=== PATIENT | female | born 1990 | race Caucasian/White ===

== ENCOUNTER → 2017-07-10 23:50 | Observation (INO) ==
--- NOTE | 2017-07-10 22:19 | OB/GYN Progress Note ---
Date of Encounter: 07/10/17 Time of Encounter: 22:16 - Assessment and Plan (1) 28 weeks gestation of Current Visit: Yes Status: Acute admit for observation (2) Vaginal discharge during in second trimester Current Visit: Yes Status: Acute vaginosis panel Subjective - Subjective Principal diagnosis: Vaginal discharge Interval history: Patient is 27 y/o at 28 weeks gestation presents to labor and delivery with complaints of vaginal discharge after intercourse. Patient states she was concerned due to PPROM at 26 weeks with last . Patient denies contractions and reports +FM. Patient denies any vaginal bleeding but reports white watery discharge. Patient denies any vaginal itching or burning. Patient is on vaginal progesterone and last dose was last night. Patient is on subutex and has history of LTCS. Antepartum ROS: loss of fluid, movement normal, no vaginal bleeding, no contractions Objective - Exam FHR: auscultation normal FHR comments: baseline 125 bpm Auscultation: bilateral: normal Abdomen: Present: normal appearance, soft, gravid Uterus: Present: normal, firm Cervical dilation: closed Cervix effacement: 60 station: -3 Comments: speculum exam: NO pooling, Nitrazine equivocal, Fern test negative. Moderate amount of water white discharge. vaginosis panel collected and sent to lab
[2017-07-10 22:40] LABS: Amphetamine Screen,Urine Negative ng/mL (Cutoff=1000); Barbiturate Screen,Urine Negative ng/mL (Cutoff=200); Benzodiazepines Screen,Urine Negative ng/mL (Cutoff=200); Cannabinoid Screen,Urine Negative ng/mL (Cutoff = 50); Cocaine Screen,Urine Negative ng/mL (Cutoff= 300); Opiate Screen,Urine Negative ng/mL (Cutoff=300); Phencyclidine Screen,Urine Negative ng/mL (Cutoff=25)
[2017-07-10 23:29] LABS: Bilirubin,Urine Negative (Negative); Blood,Urine Negative (Negative); Clarity,Urine Clear (Clear); Color,Urine Yellow (Yellow); Glucose,Urine (UA) Normal (Normal); Ketones,Urine Negative (Negative); Leukocyte Esterase,Urine Negative (Negative); Nitrite,Urine Negative (Negative); Protein,Urine Negative (Neg-Trace); Specific Gravity,Urine 1.017 (1.010-1.025); Urobilinogen,Urine Normal (Normal)
[2017-07-10 23:31] LABS: Candida DNA Not Detected (Not Detect); Gardnerella DNA ***DETECTED*** (Not Detect); Trichomonas DNA Not Detected (Not Detect)
--- NOTE | 2017-07-10 23:34 | Discharge Summary ---
Date of Encounter: 07/10/17 Time of Encounter: 23:33 - Discharge Diagnosis (1) 28 weeks gestation of Priority: Primary Status: Acute (2) Vaginal discharge during in second trimester Priority: Secondary Status: Acute Comments: vaginosis panel + for BV (3) BV (bacterial vaginosis) Priority: Secondary Status: Acute Comments: RX for flagyl 500mg po BID x 7 days (4) NST (non-stress test) reactive on surveillance Priority: Secondary Status: Acute Comments: baseline 125 bpm moderate variability +15x15 accels no decels noted. - Discharge Medications Prescriptions: Docusate Sodium [Colace] 100 mg PO BID #60 capsule metroNIDAZOLE [Flagyl] 500 mg PO BID #14 tablet Home Medications: Docusate Sodium [Colace] 100 mg PO BID #60 capsule 07/10/17 [Rx] Gabapentin Enacarbil 07/10/17 [History] One Tablet 07/10/17 [History] Progesterone 07/10/17 [History] Subutex 07/10/17 [History] metroNIDAZOLE [Flagyl] 500 mg PO BID #14 tablet 07/10/17 [Rx] Allergies/Adverse Reactions: 3 Allergy/AdvReac Type Severity Reaction Status Date / Time dayquil Allergy Hives Uncoded 05/28/16 00:00 Data Procedures and tests throughout hospitalization: Laboratory Tests 07/10/17 07/10/17 07/10/17 22:10 22:10 23:10 Urine Color Yellow Urine Clarity Clear Urine pH 7.0 Ur Specific [place] 1.017 Urine Protein Negative Urine Glucose (UA) Normal Urine Ketones Negative Urine Blood Negative Urine Nitrite Negative Urine Bilirubin Negative Urine Urobilinogen Normal Ur Leukocyte Esterase Negative Ur Culture Indicated? NO Urine Opiates Screen Negative Ur Barbiturates Screen Negative Ur Phencyclidine Scrn Negative Ur Amphetamines Screen Negative U Benzodiazepines Scrn Negative Urine Cocaine Screen Negative U Marijuana (THC) Screen Negative Claudia species DNA Not Detected Gardnerella DNA Probe DETECTED A Trichomonas DNA Probe Not Detected Labs on day of discharge: Labs from last 24 hours 07/10/17 07/10/17 07/10/17 23:10 22:10 22:10 Urine Color Yellow Urine Clarity Clear Urine pH 7.0 Ur Specific [place] 1.017 Urine Protein Negative Urine Glucose (UA) Normal Urine Ketones Negative Urine Blood Negative Urine Nitrite Negative Urine Bilirubin Negative Urine Urobilinogen Normal Ur Leukocyte Esterase Negative Ur Culture Indicated? NO Urine Opiates Screen Negative Ur Barbiturates Screen Negative Ur Phencyclidine Scrn Negative Ur Amphetamines Screen Negative U Benzodiazepines Scrn Negative Urine Cocaine Screen Negative U Marijuana (THC) Screen Negative Claudia species DNA Not Detected Gardnerella DNA Probe DETECTED A Trichomonas DNA Probe Not Detected Date of admission: 07/10/17 22:04 Discharging clinician: Lidia Palmer Anticipated date of discharge: 07/10/17 - Patient Status Disposition: Home, Self-Care Condition: Good Functional capacity at discharge: independent ambulation - Discharge Instructions Follow Up With: Janak Lopez DO [Partnered Physician] - - Diet and Activity Activity: increase activity as tolerated Diet: regular diet Hospital Course [employer]OR [employer]SEMBLER Time Attestation: Total time spent providing and/or coordinating discharge services: Time Spent: Less than 30 minutes Exam - Other Additional findings: FHR 125 bpm moderate variability + 15x15 accels no decels noted. - VTE Reasons for not Prescribing Prophylaxis: Treatment not Indicated - Low risk for VTE
== END | disposition home or self-care (01) ==
LOC: 1NENULAB
PROVIDERS: ADMIT Student in an Organized Health Care Education/Training Program; ATTEND Student in an Organized Health Care Education/Training Program

== ENCOUNTER 2017-08-18 18:16 | Observation (INO) ==
[2017-08-18 19:15] LABS: Bilirubin,Urine Negative (Negative); Blood,Urine Negative (Negative); Clarity,Urine Clear (Clear); Color,Urine Yellow (Yellow); Glucose,Urine (UA) Normal (Normal); Ketones,Urine Negative (Negative); Leukocyte Esterase,Urine Trace (Negative); Nitrite,Urine Negative (Negative); PH,Urine 7.5 pH Units (5.0-8.0); Protein,Urine Negative (Neg-Trace); Specific Gravity,Urine 1.014 (1.010-1.025); Urobilinogen,Urine Normal (Normal)
[2017-08-18 19:17] LABS: Bacteria,Urine None Seen per hpf (None-Few); Hyaline Casts,Urine None Seen per lpf (None-Few); RBC,Urine 0-3 per hpf (0-3); Squamous Epithelial Cell,Urine Many per lpf (None-Few)
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
[2017-08-18 19:31] LABS: Amphetamine Screen,Urine Negative ng/mL (Cutoff=1000); Barbiturate Screen,Urine Negative ng/mL (Cutoff=200); Benzodiazepines Screen,Urine Negative ng/mL (Cutoff=200); Cannabinoid Screen,Urine Negative ng/mL (Cutoff = 50); Cocaine Screen,Urine Negative ng/mL (Cutoff= 300); Opiate Screen,Urine Negative ng/mL (Cutoff=300); Phencyclidine Screen,Urine Negative ng/mL (Cutoff=25)
[2017-08-18 20:58] LABS: Candida DNA Not Detected (Not Detect); Gardnerella DNA ***DETECTED*** (Not Detect); Trichomonas DNA Not Detected (Not Detect)
== END 2017-08-18 20:42 | disposition home or self-care (01) ==
LOC: 1NENULAB
PROVIDERS: ADMIT Obstetrics & Gynecology; ATTEND Obstetrics & Gynecology

== ENCOUNTER 2017-08-23 16:16 | Observation (INO) ==
[2017-08-23 17:07] LABS: Amphetamine Screen,Urine Negative ng/mL (Cutoff=1000); Barbiturate Screen,Urine Negative ng/mL (Cutoff=200); Benzodiazepines Screen,Urine Negative ng/mL (Cutoff=200); Cannabinoid Screen,Urine Negative ng/mL (Cutoff = 50); Cocaine Screen,Urine Negative ng/mL (Cutoff= 300); Opiate Screen,Urine Negative ng/mL (Cutoff=300); Phencyclidine Screen,Urine Negative ng/mL (Cutoff=25)
--- NOTE | 2017-08-23 17:27 | OB/GYN Progress Note ---
Date of Encounter: 08/23/17 Time of Encounter: 17:20 - Assessment and Plan (1) and not yet delivered in third trimester Current Visit: Yes Status: Acute (2) 34 weeks gestation of Current Visit: Yes Status: Acute (3) uterine contractions in third trimester, antepartum Current Visit: Yes Status: Acute We will discharge patient home labor precautions given to follow-up in the office in 2 days. (4) Previous section complicating Current Visit: Yes Status: Acute Subjective - Subjective Interval history: Patient is a 27-year-old 4 para 0121 at 34-5/7 weeks who presented by squad due to contractions. Patient has a history of a previous section at 27 weeks due to premature rupture membranes. Patient's been having multiple complaints over the past few weeks with leaking and cramping and pressure. Patient was just seen on Thursday with similar complaints we ruled out leaking and she was 1 cm 80% and ballotable. The patient states she is having increasing vaginal mucus and this vaginal pressure and contractions got concerned was advised to come to the hospital. She had no ride so she came in by EMS. Upon arrival to labor and delivery patient was checked and was noted to have the same cervical exam at 1 cm and still ballotable and no contractions were seen. She had some irritability but nothing that we could see was a contraction. We did observe her one hour with no change in her contraction pattern and patient was ready to go home. She will be discharged home and instructed to follow up in the office in 2 days. She denies any leaking of fluid other than mucus and is still having good movement. She has already had her steroid shots earlier in the . Antepartum ROS: loss of fluid, contractions Objective - Vital Signs Vital Signs: Intake and Output 08/23/17 08/23/17 08/23/17 07:59 15:59 23:59 Other: Weight 58.2 kg Patient Weight 08/23/17 23:59 Weight 58.2 kg - Exam FHR: category 1 FHR comments: heart tones 140s reassuring no contraction seen occasional irritability Abdomen: Present: normal appearance, soft, gravid Uterus: Present: firm Cervical dilation: 1 Cervix effacement: 80 station: ballotable
== END 2017-08-23 17:25 | disposition home or self-care (01) ==
LOC: 1NENULAB
PROVIDERS: ADMIT Obstetrics & Gynecology; ATTEND Obstetrics & Gynecology

== ENCOUNTER 2017-08-27 20:42 | Inpatient (IN) ==
[~2017-08-27 20:42] MED LIST: CeFAZolin Premix DUPLEX 2,000 MG/50 ML BAG IVPB ONE; Famotidine 20 MG/2 ML VIAL IVP ONE; Metoclopramide 10 MG/2 ML VIAL IVP ONE; Ringers Solution, Lactated 1,000 ML IVC ONE
[2017-08-27] MEDS ORDERED: Ringers Solution, Lactated 1,000 ML IVC SCH (20:45)
[2017-08-27] MEDS ORDERED: Ringers Solution, Lactated 1,000 ML ONE (20:47)
[2017-08-27] MEDS ORDERED: MetroNIDAZOLE 500 MG/100 ML 500 MG/100 ML BAG IVPB ONE (21:27)
[2017-08-27] MEDS ORDERED: cefOXitin 2,000 MG in D5% in Water (Mini-Bag+) 100 ML IVPB ONE (21:27)
--- NOTE | 2017-08-27 21:31 | OB/GYN History & Physical ---
Date of Encounter: 08/27/17 Time of Encounter: 21:27 Assessment and Plan (1) 35 weeks gestation of Current visit: Yes Status: Acute care with Dr. Lopez (2) Opioid abuse Current visit: Yes Status: Chronic On Suboxone with supervision (3) Hepatitis C infection Current visit: Yes Status: Chronic The patient has not received treatment during Qualifiers: Viral hepatitis chronicity: unspecified Hepatic coma status: without hepatic coma Qualified Code(s): B19.20 - Unspecified viral hepatitis C without hepatic coma (4) Tobacco use affecting in third trimester, antepartum Current visit: Yes Status: Chronic Smoking cessation reviewed per Dr. Lopez, IUGR and grade 3 placenta on ultrasound 08/26/17 (5) Premature rupture of membranes (PROM) affecting second Current visit: Yes Status: Acute The patient is being treated with antibiotics and consented for a repeat section (6) uterine contractions in third trimester, antepartum Current visit: No Status: Acute Plan is repeat section due to unknown scar with history of delivery by at 26 weeks (7) Previous section complicating Current visit: No Status: Acute History of Present Illness Chief complaint: 35 wk PROM HPI: Ms. Lopez is a 27 year old female at 35 weeks 1 day with an EDC of 09/30/17 who presents to labor and delivery with spontaneous rupture membranes, clear fluid, at 2014. The patient reports she was just lying in bed. She has received care from Dr. Lopez after transfer from Dr. Chung in second trimester. She has been on Suboxone. She denies any vaginal bleeding. She is appreciating contractions. She had a previous at 26 weeks with her previous after spontaneous rupture of membranes. Her has also been complicated by tobacco use, marijuana possession, positive hepatitis C, positive hepatitis B, previous delivery with previous Past Med Surg Social Fam HX - Past Medical History Source: patient, old records reviewed Medical history: hepatitis, other Psychiatric history: anxiety, bipolar, depression, PTSD, prior suicide attempt - Past Surgical History Surgical History: , orthopedic, other - Social History Smoking Status: Current every day smoker Packs per day: 1/2 pack daily Smokeless Tobacco Status: No Alcohol use: none Drug use: opiates, marijuana - Family History Father Living Status: Still Living Hx Family Cardiac Disorders: No Hx Family Respiratory Disorders: No Hx Family Cancer: No Hx Family GI Disorders: No Hx Family Genitourinary Disorders: No Hx Family Endocrine Disorder: No Hx Family Musculoskeletal Disorders: No Hx Family Neuromuscular Disorders: No Hx Family Neurologic Disorders: No Hx Family HEENT Disorders: No Hx Family Autoimmune Disorders: No Hx Family Reproductive Disorders: No Hx Family Psychosocial Disorders: No Hx Family Medical Disorders: No Obstetrical History - Pregnancies : 4 Term: 0 : 1 Ab's: 2 Livin Medications and Allergies One Tablet 1 tab PO DAILY 07/10/17 [History] Progesterone 200 mg VG DAILY 07/10/17 [History] Subutex 8 mg PO BID 07/10/17 [History] 3 Allergy/AdvReac Type Severity Reaction Status Date / Time dayquil Allergy Mild Hives Uncoded 08/18/17 18:52 Review of System OB All systems PM: reviewed and no additional remarkable complaints except as stated - Constitutional Constitutional ROS IM: weight gain Exam - Vital Signs Vital signs: Afebrile, vital signs stable - Constitutional Constitutional: well developed, no acute distress, thin - HEENT HEENT: Normocephaly, Mucus Membranes Moist - Neck Neck exam: normal inspection, supple - Lungs Respiratory exam: CTAB - Cardiovascular Cardiovascular exam: RRR - Breasts Breast: bilateral: normal (Gravid) - Abdomen Abdomen: Present: bowel sounds normal, gravid, non tender - Extremities Extremities exam: normal inspection, warm Deep Tendon Reflex Grade: 2+ Normal - Vulva Vulva: bilateral: normal - Anus/Rectum Anus/Rectum: Present: normal perianal skin - Comments Comments: Fluid gushing during contractions, grossly ruptured, cervical exam not performed. Ultrasound on 08/26/17 shows a granda in vertex presentation with a grade 3 placenta, LAUREN of 15 cm and estimated weight of 4 lbs. 6 oz. which is the 16th percentile. Results All other labs normal. - VTE Documentation of Mechanical Device: Intermittent pneumatic compression device
[2017-08-27] MEDS ORDERED: Lidocaine -MPF 2% 5 ML VIAL ONE (21:32)
--- NOTE | 2017-08-27 21:46 | Anesthesia Evaluation PreOp ---
Date of Encounter: 08/27/17 Time of Encounter: 21:44 - Past History Planned Operation: C-S Cardiac History: Denies any Significant Hx Pulmonary History: Smoker, Other REHAB NURSE History: Denies Any Significant HX Other Medical History: Hepatic (? Hep C negative in computer), Other Anesthesia History: No Prior Anesthetic Complications Alcohol Use: none Drug use: opiates, marijuana Medications and Allergies One Tablet 1 tab PO DAILY 07/10/17 [History] Progesterone 200 mg VG DAILY 07/10/17 [History] Subutex 8 mg PO BID 07/10/17 [History] 3 Allergy/AdvReac Type Severity Reaction Status Date / Time dayquil Allergy Mild Hives Uncoded 08/18/17 18:52 - Meds/Allergy Pre-op Review Medications Reviewed: Yes Allergies Reviewed: Yes Beta Blockers on Current Med List: No Anesthesia Results - Labs Laboratory Tests 07/06/17 14:20 WBC 7.0 Hgb 11.1 L Hct 33.3 L Plt Count 203 Anesthesia Exam Weight: 59 kg NPO (# of Hours): ate at 4pm today - HEENT Pupil (Motor): Pupils equal, EOMI Mallampati: III Teeth: Missing, Poor dentition Oral Opening: Greater than 3 - REHAB NURSE LOC: Oriented (Hep C anti-body positive with RNA negative) - Cardiac Rhythm: Regular Murmur: None - Pulmonary Breath Sounds: bilateral Clear Respiratory Effort: Symmetrical Anesthesia Assess/Plan ASA Score: 2 Modified Rhiannon Scale for Level of Consciousness: Cooperative, oriented, and tranquil Anesthetic Plan: General (Plan B), Regional (Plan A), Precautions (Cannot wait for NPO guidelines per Dr. Patel) Monitoring Plan: Standard Monitors Recovery Plan: PACU
[2017-08-27] MEDS ORDERED: cefOXitin 2,000 MG in Water for inj. (sterile) 10 ML IVP ONE (22:00)
[2017-08-27 22:05] LABS: Basophils % 0.1 %; Eosinophils # 0.3 K/mcL (0.0-0.6); Eosinophils % 1.9 %; Hematocrit 28.6 % (35.3-44.9); Hemoglobin 9.9 g/dL (11.5-15.4); Immature Granulocytes % 0.5 % (0-4); Lymphocytes # 3.3 K/mcL (0.6-4.6); Lymphocytes % 22.3 %; Mean Corpuscular HGB Conc 34.6 g/dL (31.6-35.5); Mean Corpuscular Hemoglobin 31.4 pg (28.0-33.3); Mean Corpuscular Volume 90.8 fL (83.0-100.0); Mean Platelet Volume 10.5 fL (9.4-12.4); Monocytes # 0.8 K/mcL (0.0-1.3); Monocytes % 5.2 %; Neutrophils # 10.4 K/mcL (1.6-8.9); Platelet Count 249 K/mcL (140-400); Red Blood Count 3.15 M/mcL (3.82-4.97); Red Cell Distribution Width 13.7 % (11.5-14.5)
[2017-08-27] MEDS ORDERED: *HR* Morphine Sulfate/PF 5 MG/10 ML AMPUL ONE (22:13)
[2017-08-27] MEDS ORDERED: *HR* Oxytocin 10 UNIT/ML VIAL IM ONE (22:14)
[2017-08-27] MEDS ORDERED: *HR* FentaNYL (PF) 100 MCG/2 ML VIAL ONE ×2 (22:14→23:18)
[2017-08-27] MEDS ORDERED: 0.9 % Sodium Chloride 300 ML ONE (22:30)
[2017-08-27] MEDS ORDERED: *HR* Phenylephrine 10 MG/ML VIAL ONE (22:30)
[2017-08-27 22:31] LABS: Amphetamine Screen,Urine Negative ng/mL (Cutoff=1000); Barbiturate Screen,Urine Negative ng/mL (Cutoff=200); Benzodiazepines Screen,Urine Negative ng/mL (Cutoff=200); Cannabinoid Screen,Urine Negative ng/mL (Cutoff = 50); Cocaine Screen,Urine Negative ng/mL (Cutoff= 300); Opiate Screen,Urine Negative ng/mL (Cutoff=300); Phencyclidine Screen,Urine Negative ng/mL (Cutoff=25)
[2017-08-27] MEDS ORDERED: Ondansetron 4 MG/2 ML VIAL IVP ONE (22:53)
[2017-08-27] MEDS ORDERED: Ondansetron 4 MG/2 ML VIAL IVP PRN (22:53)
[2017-08-27] MEDS ORDERED: *HR* HYDROmorphone (PF) 1 MG/ML SYRINGE IVP PRN (22:53)
[2017-08-27] MEDS ORDERED: *HR* Promethazine 25 MG/ML VIAL IVP PRN (22:53)
[2017-08-27] MEDS ORDERED: Acetaminophen IV 1,000 MG/100 ML INFUS..BTL IVPB ONE (23:14)
--- NOTE | 2017-08-27 23:49 | OB/GYN Procedure Note ---
Section - Date of procedure: 08/27/17 Preop diagnosis: desires repeat , other (PROM,IUGR) Post-op diagnosis: same Procedure: section, repeat low transverse Surgeon: Bela Patel Estimated blood loss (cc): 500 Anesthesiologist: Mary Anne Horner Distillery Laborer: Uzair Gandara Anesthesia Type: Spinal section complications: none Disposition: L&D Recovery Room Specimens: Placenta - (s) A Delivery Date: 08/27/17 Delivery Time: 23:05 Presentation: vertex Gender: Male Viability: Viable Pounds: 4 Ounces: 8 at 1 minute: 8 at 5 minutes: 9 Placenta: spontaneous Cord: 3 umbilical vessels - Narrative Narrative: The patient was taken to the operating room and given spinal anesthesia adequate for abdominal and pelvic surgery. She was prepped and draped in the usual sterile fashion. Timeout was completed. A Pfannenstiel skin incision was made through the previous scar. The subcutaneous tissue was sharply dissected down to the fascia. The fascia was incised in the midline and extended bilaterally with Ta scissors.. 2 straight Tamara clamps were placed on the inferior fascial edge and the fascia was bluntly and sharply dissected away from the rectus muscles. This was repeated superiorly. The rectus muscles were bluntly bissected. Peritoneum was sharply entered and then extended superiorly and inferiorly confirming there were no anterior adhesions. Bladder blade was placed to protect the bladder. Vesicouterine peritoneum was incised and reflected inferiorly and the bladder blade was replaced to protect the bladder. A low transverse incision was then made through the lower uterine segment down to the amnion. This was bluntly extended bilaterally and extended in a U fashion with bandage scissors.. The amnion was bluntly entered. Clear fluid was seen. This was followed by the vertex delivery of a viable and vigorous male weighing 4#8oz with Apgars of 8 at 1 minute and 9 at 5 minutes. Infant was placed on the maternal abdomen. The cord was clamped and cut after a delay. was handed to the nursery care team. The placenta was delivered spontaneous and intact. The uterine cavity was digitally palpated and wiped clean with a moist lap sponge. There were no placental remnants identified. A ring forcep was used to make sure the cervix was dilated and then this was discarded off the field. Clamps were placed on the uterine angles and the uterine incision was closed using 0 Vicryl suture in a running, locking fashion. A second imbricating layer completed the uterine closure with 0 Vicryl suture. The uterus was then examined and noted to be hemostatic. The pelvis was then irrigated with a copious amount of sterile water. And again good hemostasis was identified. Tubes and ovaries were inspected and noted to be grossly normal. The peritoneal edges and rectus muscles were then examined and hemostasis achieved. The fascia was then closed using 0 PDS loop in a running nonlocking fashion. Subcutaneous tissue was irrigated with sterile water, good hemostasis was achieved. The skin was then closed using a 4-0 Monocryl in a running subcuticular fashion. The incision was then reinforced with benzoin and Steri-Strips. Good hemostasis was noted. Estimated blood loss was 500cc. The Mclean was noted to be draining clear yellow urine at the end of the procedure. All sponge and instrument counts are correct at the end of the procedure. The patient was taken to the recovery room in stable condition.
[2017-08-27] MEDS ORDERED: Oxytocin 20 units/ LR 1000 mL 20 UNIT/1,000 ML BAG IVC ONE (23:52)
[2017-08-28] MEDS: *HR* HYDROmorphone (PF) 1 MG/ML SYRINGE IVP PRN ×4 (00:29→01:48)
[2017-08-28] MEDS ORDERED: Simethicone 80 MG TAB.CHEW PO PRN (01:54)
[2017-08-28] MEDS ORDERED: Sennosides 8.6 MG TABLET PO PRN (01:54)
[2017-08-28] MEDS ORDERED: Metoclopramide 10 MG/2 ML VIAL IVP PRN (01:54)
[2017-08-28] MEDS ORDERED: Acetaminophen 325 MG TABLET PO PRN (01:54)
[2017-08-28] MEDS ORDERED: Oxytocin 20 units/ LR 1000 mL 20 UNIT/1,000 ML BAG IVC SCH (01:54)
[2017-08-28] MEDS ORDERED: Ondansetron 4 MG/2 ML VIAL IVP PRN (01:54)
[2017-08-28] MEDS: Ibuprofen 600 MG TABLET PO SCH ×3 (03:27→18:12)
[2017-08-28 07:14] LABS: Basophils % 0.3 %; Eosinophils # 0.2 K/mcL (0.0-0.6); Eosinophils % 2.3 %; Hematocrit 27.9 % (35.3-44.9); Hemoglobin 9.4 g/dL (11.5-15.4); Immature Granulocytes % 0.4 % (0-4); Lymphocytes # 3.4 K/mcL (0.6-4.6); Lymphocytes % 32.6 %; Mean Corpuscular HGB Conc 33.7 g/dL (31.6-35.5); Mean Corpuscular Hemoglobin 30.6 pg (28.0-33.3); Mean Corpuscular Volume 90.9 fL (83.0-100.0); Mean Platelet Volume 11.1 fL (9.4-12.4); Monocytes # 0.7 K/mcL (0.0-1.3); Monocytes % 6.4 %; Platelet Count 196 K/mcL (140-400); Red Blood Count 3.07 M/mcL (3.82-4.97); Red Cell Distribution Width 13.8 % (11.5-14.5)
[2017-08-28] MEDS: *HR* OxyCODONE/APAP 5/325 TABLET PO PRN ×3 (08:06→18:12)
[2017-08-28] MEDS: Nicotine 14 MG PATCH.TD24 TD SCH (08:06)
[2017-08-28] MEDS: Prenatal Vit/FA 1 EACH TABLET PO SCH (08:08)
--- NOTE | 2017-08-28 08:48 | Anesthesia Evaluation Post Op ---
Date of Encounter: 08/28/17 Time of Encounter: 08:46 - Vital Signs Vital Signs: Vital Signs/O2 Sat/Glucose, Most Current Temp Pulse Resp BP Pulse Ox 08/28/17 05:35 97.9 F 67 14 105/59 98 - Lungs Lungs: Clear Ascult./Percussion - Airway Airway: Non-obstructed - Cardiovascular Regular Rate, Baseline Rhythm - Mental Status Mental Status: Alert & Oriented, Answers Appropriately - Pain Pain Scale: 8 Pain Scale used: Numeric (1 - 10) - Nausea Vomiting Nausea Vomiting: Not Present - Hydration Hydration: Tolerates oral liquids, Able to void - Discharge PostOp Status: Transfer Patient to floor
--- NOTE | 2017-08-28 08:52 | OB/GYN Progress Note ---
Date of Encounter: 08/28/17 Time of Encounter: 08:49 - Assessment and Plan (1) delivered by caesarean section, 2,000-2,499 grams, 35-36 completed weeks Current Visit: Yes Status: Acute S/p Day 1 after . Patient is progressing. Plan is to have the hawk removed today, advance diet, and have the patient ambulate. Positive for passing gas. (2) Opioid abuse Current Visit: Yes Status: Chronic Patient is s/p Day 1. Continue subutex therapy. Subjective - Subjective Principal diagnosis: section at 35 weeks Interval history: Patient is a 27 year-old female at s/p section at 35 1 presented to L&D with spontaneous rupture of membranes, clear fluid on 08/27 at 2014. Patient was performed by Dr. Patel, she received care from Dr. Lopez. She is currently on Suboxone, this is Day One s/p c- section. Her has been complicated by tobacco use, marijuana possession , positive hepatitis C, positive Hepatitis B, and previous delivery with previous . The patient was given spinal anesthesia in the operating room. The was without complications, estimated blood loss was 500cc. Today, the patient states she feels she is progressing. She will be ambulated at 11:00am this morning and the hawk will be removed. The patient states her pain is [id number] and she had just received a percocet prior to arrival at bedside. No nausea, tolerating clear liquids at this time. Patient is c/o of a cough and congestion that she had prior to delivery. Patient is c/o pain at the incision site, no drainage or heavy bleeding acknowledged. She states she has been passing gas well. The baby is bottle fed, mom is utilizing the breast pump. Otherwise, patient states she has no other questions or concerns at this time. Patient reports: appetite normal, no appetite poor, no nauseated : in NICU, other (Patient reports patient may be getting CPAP for respiratory support), bottle feeding (pumping) Objective - Vital Signs Latest vital signs: Vital Signs Temp Pulse Pulse Resp BP Pulse Ox 08/28/17 05:35 97.9 F 67 14 105/59 98 08/28/17 04:30 98.1 F 88 16 122/71 98 08/28/17 03:25 97.6 F 60 16 123/77 98 08/28/17 02:45 97.6 F 58 14 111/66 98 08/28/17 02:15 97.3 F L 61 64 14 117/71 98 08/28/17 01:28 98.0 F 57 12 109/78 97 08/28/17 01:14 68 12 107/74 08/28/17 00:59 97.5 F L 66 12 97 08/28/17 00:43 97.5 F L 62 12 109/68 97 08/28/17 00:28 75 12 110/73 97 08/28/17 00:13 97.7 F 74 16 112/70 98 08/27/17 22:14 98.3 F 57 12 109/68 97 Intake and Output 08/27/17 08/28/17 08/28/17 23:59 07:59 15:59 Intake Total 800 / 800 Output Total 1475 / 1475 Balance 800 / 800 -1475 / -1475 Intake: Oral 800 / 800 Output: Estimated Blood Loss 500 / 500 Catheter 975 / 975 Other: Stool Characteristics Normal for Patient Weight 58.967 kg - Exam Lungs: bilateral: normal Chest: Normal S1, Normal S2 Extremities: Present: normal. Absent: tenderness, edema Abdomen: Present: normal appearance, soft, tenderness (tender mildly over incision site. Appears to be healing well. No drainage beyond the bandage. No flunctuance or induration appreciated.) Incision: Present: dressed (small amount drainage noted to edges. ) Uterus: Present: firm (at U) - Labs Labs: Laboratory Results - last 24 hr 08/27/17 08/27/17 08/27/17 21:58 21:58 22:05 WBC 14.9 H RBC 3.15 L Hgb 9.9 L Hct 28.6 L MCV 90.8 MCH 31.4 MCHC 34.6 RDW 13.7 Plt Count 249 MPV 10.5 Immature Gran % 0.5 Seg Neutrophils % 70.0 Lymphocytes % 22.3 Monocytes % 5.2 Eosinophils % 1.9 Basophils % 0.1 Neutrophils # 10.4 H Lymphocytes # 3.3 Monocytes # 0.8 Eosinophils # 0.3 Basophils # 0.0 Immature Plt Fraction 8.0 H Urine Opiates Screen Negative Ur Barbiturates Screen Negative Ur Phencyclidine Scrn Negative Ur Amphetamines Screen Negative U Benzodiazepines Scrn Negative Urine Cocaine Screen Negative U Marijuana (THC) Screen Negative Hep Bs Antigen Nonreactive 08/28/17 06:51 WBC 10.3 RBC 3.07 L Hgb 9.4 L Hct 27.9 L MCV 90.9 MCH 30.6 MCHC 33.7 RDW 13.8 Plt Count 196 MPV 11.1 Immature Gran % 0.4 Seg Neutrophils % 58.0 Lymphocytes % 32.6 Monocytes % 6.4 Eosinophils % 2.3 Basophils % 0.3 Neutrophils # 6.0 Lymphocytes # 3.4 Monocytes # 0.7 Eosinophils # 0.2 Basophils # 0.0 Immature Plt Fraction Urine Opiates Screen Ur Barbiturates Screen Ur Phencyclidine Scrn Ur Amphetamines Screen U Benzodiazepines Scrn Urine Cocaine Screen U Marijuana (THC) Screen Hep Bs Antigen
[2017-08-28] MEDS ORDERED: *HR* Buprenorphine HCl 2 MG SUBLINGUAL TABLET SL SCH ×2 (09:00→21:00)
[2017-08-28] MEDS: *HR* Buprenorphine HCl 8 MG TAB.SUBL SL SCH (22:27)
[2017-08-29] MEDS: Ibuprofen 600 MG TABLET PO SCH ×2 (03:32→09:32)
--- NOTE | 2017-08-29 08:21 | OB/GYN Progress Note ---
Date of Encounter: 08/29/17 Time of Encounter: 08:19 Subjective - Subjective Principal diagnosis: 35 week gestation s/p POD#2 Interval history: Pt reports she is doing well. States that she is having some pain near her incision site, but denies fevers, chills, or drainage from the site. She is tolerating oral intake, ambulating without light-headedness, voiding well, and passing flatus. Denies other complaints. Patient reports: appetite normal, voiding normally, ambulating normally [place]: other ([facility] 5 day hold) Objective - Vital Signs Latest vital signs: Vital Signs Temp Pulse Resp BP Pulse Ox 08/28/17 20:51 98.2 F 69 16 113/72 97 08/28/17 12:01 98.2 F 64 14 108/72 98 Intake and Output 08/28/17 08/29/17 08/29/17 23:59 07:59 15:59 Intake Total 240 / 240 Output Total 1000 / 1000 Balance -760 / -760 Intake: Oral 240 / 240 Output: Urine 1000 / 1000 Other: Meal Dinner Percent of Meal Consumed 100% Weight 57.379 kg Patient Weight 08/29/17 23:59 Weight 57.379 kg - Exam Lungs: bilateral: wheezes Chest: Normal S1, Normal S2 Extremities: Present: edema (mild bilaterally) Abdomen: Present: normal appearance, soft Incision: Present: dressed Uterus: Present: firm Fundal Height: 2 (fingers below umbilicus)
[2017-08-29 08:24] VITALS: BP 109/72
--- NOTE | 2017-08-29 08:47 | Discharge Summary ---
Date of Encounter: 08/29/17 Time of Encounter: 08:44 - Discharge Diagnosis (1) 35 weeks gestation of Priority: Primary Status: Acute Comments: G4 now P0222 delivered via section at 35 weeks gestation after SROM on 08/27. POD#2 meeting all post-op milestones (2) Delivered by section Priority: Secondary Status: Acute (3) Premature rupture of membranes (PROM) affecting second Priority: Secondary Status: Acute (4) Hepatitis C infection Priority: Secondary Status: Chronic Comments: Follow-up testing appears to be negative Qualifiers: Viral hepatitis chronicity: unspecified Hepatic coma status: without hepatic coma Qualified Code(s): B19.20 - Unspecified viral hepatitis C without hepatic coma (5) Opioid abuse Priority: Secondary Status: Chronic (6) Tobacco use affecting in third trimester, antepartum Priority: Secondary Status: Chronic - Discharge Medications Prescriptions: Ibuprofen [Motrin] 600 mg PO Q6HR PRN #120 tablet PRN Reason: Moderate Pain Breast Pump [BREAST PUMP] 1 each .ROUTE AD #1 each Buprenorphine HCl [Subutex] 16 mg SL BID #9 tab.subl Docusate [Colace] 100 mg PO BID PRN #14 capsule PRN Reason: Constipation Ferrous Sulfate 325 mg PO DAILY #30 tablet.dr Home Medications: One Tablet 1 tab PO DAILY 07/10/17 [History] Progesterone 200 mg VG DAILY 07/10/17 [History] Subutex 8 mg PO BID 07/10/17 [History] Buprenorphine HCl [Subutex] 16 mg SL BID #9 tab.subl 08/28/17 [Rx] Breast Pump [BREAST PUMP] 1 each .ROUTE AD #1 each 08/29/17 [Rx] Docusate [Colace] 100 mg PO BID PRN #14 capsule 08/29/17 [Rx] Ferrous Sulfate 325 mg PO DAILY #30 tablet. 08/29/17 [Rx] Ibuprofen [Motrin] 600 mg PO Q6HR PRN #120 tablet 08/29/17 [Rx] Allergies/Adverse Reactions: 3 Allergy/AdvReac Type Severity Reaction Status Date / Time dayquil Allergy Mild Hives Uncoded 08/18/17 18:52 Data Procedures and tests throughout hospitalization: Laboratory Tests 08/27/17 08/27/17 08/27/17 21:58 21:58 22:05 WBC 14.9 H RBC 3.15 L Hgb 9.9 L Hct 28.6 L MCV 90.8 MCH 31.4 MCHC 34.6 RDW 13.7 Plt Count 249 MPV 10.5 Immature Gran % 0.5 Seg Neutrophils % 70.0 Lymphocytes % 22.3 Monocytes % 5.2 Eosinophils % 1.9 Basophils % 0.1 Neutrophils # 10.4 H Lymphocytes # 3.3 Monocytes # 0.8 Eosinophils # 0.3 Basophils # 0.0 Immature Plt Fraction 8.0 H Urine Opiates Screen Negative Ur Barbiturates Screen Negative Ur Phencyclidine Scrn Negative Ur Amphetamines Screen Negative U Benzodiazepines Scrn Negative Urine Cocaine Screen Negative U Marijuana (THC) Screen Negative Hep Bs Antigen Nonreactive 08/28/17 06:51 WBC 10.3 RBC 3.07 L Hgb 9.4 L Hct 27.9 L MCV 90.9 MCH 30.6 MCHC 33.7 RDW 13.8 Plt Count 196 MPV 11.1 Immature Gran % 0.4 Seg Neutrophils % 58.0 Lymphocytes % 32.6 Monocytes % 6.4 Eosinophils % 2.3 Basophils % 0.3 Neutrophils # 6.0 Lymphocytes # 3.4 Monocytes # 0.7 Eosinophils # 0.2 Basophils # 0.0 Immature Plt Fraction Urine Opiates Screen Ur Barbiturates Screen Ur Phencyclidine Scrn Ur Amphetamines Screen U Benzodiazepines Scrn Urine Cocaine Screen U Marijuana (THC) Screen Hep Bs Antigen Date of admission: 08/27/17 20:42 Primary care physician: DORI GALINDO Consults: 08/28/17 01:54 Consult to Batch Roller Operator (W&C) [CONS] Routine Reason For Exam: Reason for SW Consult: Suboxone Discharging clinician: Rojas Broussard Anticipated date of discharge: 08/29/17 - Patient Status Disposition: Home, Self-Care Condition: Good Functional capacity at discharge: independent ambulation Overall status at discharge: patient is progressing back to baseline - Discharge Instructions Follow Up With: NONE,PCP [Primary Care Provider] - Additional Instructions: Take your medications as prescribed Continue to pump and feed your baby every 2-3 hours Follow-up with your [facility] provider in 2 weeks for incision check Follow-up with your primary [facility] provider in 6 weeks Pelvic rest and no heavy lifting, no driving - Diet and Activity Activity: increase activity as tolerated, resume usual activities as tolerated Diet: advance to your usual diet Hospital Course Procedures: section without complications Reason for admission: section, labor, rupture of membranes Delivery: section Other procedures: none complications: none Discharge diagnosis: delivery baby: male Hospital course: - Date of procedure: 08/27/17 Preop diagnosis: desires repeat , other (PROM,IUGR) Post-op diagnosis: same Procedure: section, repeat low transverse Surgeon: Bela Patel Estimated blood loss (cc): 500 Anesthesiologist: Mary Anne Horner Commercial Loan Coordinator: Uzair Gandara Anesthesia Type: Spinal section complications: none Disposition: L&D Recovery Room Specimens: Placenta - Infant (s) A Infant Delivery Date: 08/27/17 Delivery Time: 23:05 Presentation: vertex Gender: Male Viability: Viable Pounds: 4 Ounces: 8 at 1 minute: 8 at 5 minutes: 9 Placenta: spontaneous Cord: 3 umbilical vessels Ms. Lopez is a 27 year old female who delivered via at 35 weeks after PROM. She delivered a 4lb 8oz baby boy who is bottle feeding ( pumping). She is meeting all post-op milestones and will be discharged home with Suboxone, Motrin, and Iron. Time Attestation: Total time spent providing and/or coordinating discharge services: Time Spent: Less than 30 minutes - VTE Reasons for not Prescribing Prophylaxis: Treatment not Indicated - Low risk for VTE Documentation of Mechanical Device: Intermittent pneumatic compression device - Attending Attestation I examined this patient and my medical decision-making was reviewed with the Resident Physician. I agree with the documented findings, disposition and treatment plan as described except to the extent set forth below. Exam - Constitutional Vitals: Temp Pulse Resp BP Pulse Ox 98.5 F 56 16 109/72 98 08/29/17 08:23 08/29/17 08:23 08/29/17 08:23 08/29/17 08:23 08/29/17 08:23 General appearance IM: cooperative, A&O X 3, pleasant, no acute distress - Respiratory Respiratory exam: Present: wheezes (bilaterally) - Cardiovascular Cardiovascular exam IM: Present: RRR, +S1, +S2 - GI/Abdominal GI/Abdominal exam IM: normal bowel sounds Incision: dry, dressed - Uterine Tone: Firm Uterus Position: 2 Fingers Below Umbilicus - Extremities Exam Extremities exam IM: Present: pedal edema (mild bilaterally), warm - Neurological Exam Neurological exam: alert, oriented X3, no focal deficits
[2017-08-29] MEDS: Prenatal Vit/FA 1 EACH TABLET PO SCH (09:33)
[2017-08-29] MEDS: Nicotine 14 MG PATCH.TD24 TD SCH (09:33)
[2017-08-29] MEDS: *HR* Buprenorphine HCl 8 MG TAB.SUBL SL SCH (09:33)
== END 2017-08-29 10:00 | disposition home or self-care (01) | DRG 540 ==
LOC: 1NENULAB → 1NENUOBS 08-28 02:36
PROVIDERS: ADMIT Obstetrics & Gynecology; ATTEND Obstetrics & Gynecology